=== PATIENT | female | born 1955 | race Caucasian/White ===

== ENCOUNTER 2024-03-02 22:09 | Inpatient (IN) | payer MEDICARE, SELFPAY ==
[2024-03-02 16:24] VITALS: BP 145/62
[2024-03-02 16:44] LABS: % Basophils 0.3 % (0-2); % Eosinophils 0.5 % (0-6); % Immature Granulocytes 0.4 % (0-0.5); % Lymphocytes 13.6 % (20.5-51.1); % Monocytes 5.5 % (1.7-9.3); % Neutrophils 79.7 % (42.2-75.2); Absolute Eosinophils 0.1 10^3/uL (0-0.7); Absolute Immature Granulocytes 0.1 10^3/uL (0-0.05); Absolute Monocytes 0.8 10^3/uL (0.1-0.6); Absolute Neutrophils 11.6 10^3/uL (1.4-6.5); Hematocrit 38.4 % (37.0-47.0); Hemoglobin 13.2 g/dL (12.0-16.0); Mean Corp Hgb Conc. 34.4 g/dL (33.0-37.0); Mean Corpuscular Hgb 29.3 pg (27.0-31.0); Mean Corpuscular Volume 85.1 fL (81.0-99.0); Mean Platelet Volume 9.6 fL (7.4-10.4); Nucleated Red Blood Cells % 0 %; Platelet Count 266 10^3/uL (130-400); Red Blood Cell Count 4.51 10^6/uL (4.20-5.40); White Blood Cell Count 14.5 10^3/uL (4.8-10.8)
[2024-03-02 16:59] LABS: ALT (SGPT) 17 U/L (0-35); AST (SGOT) 24 U/L (14-36); Alkaline Phosphatase 86 U/L (38-126); Blood Urea Nitrogen 20 mg/dl (7-17); Calcium 9.5 mg/dl (8.4-10.2); Carbon Dioxide 24 mmol/L (22-30); Chloride 106 mmol/L (98-107); Glucose 150 mg/dl (70-99); Potassium 3.5 mmol/L (3.5-5.1); Sodium 139 mmol/L (135-145); Total Bilirubin 1.1 mg/dl (0.2-1.3); Total Protein 6.4 g/dl (6.3-8.2); eGFR 54.39
[2024-03-02 17:00] VITALS: BP 123/50
--- NOTE | 2024-03-02 17:13 | ED.GENMED ---
History of Present Illness
General
Chief Complaint: Fainting/Passed Out
Source: patient and family
Exam Limitations: none
Time Seen by Provider: 03/02/24 17:11
Nursing documentation reviewed up to this point in time: agreed with
History of Present Illness
History of Present Illness:
68-year-old female presents emergency department complaining of syncope episode when she went to use the hieu potty at [facility]. She was outside watching a polo match, went to use the bathroom and felt hot. She then open the door and
her son walked her to the bathroom upon which she had a syncope episode in his arms. She feels a little bit better now but is thirsty.
Past History
Past History
ED Past Medical History: HTN and Other (Colitis)
ED Past Surgical History: Cholecystectomy and Orthopedic (Bilateral knee replacement)
Social History
Tobacco: Non-smoker
Alcohol: Occasional
Drug: None
Living: with family
Review of Systems
Review of Systems
Allergies reviewed?: Yes
All Other Systems: Not applicable
Constitutional: Reports no symptoms
EENT: Reports no symptoms
Respiratory: Reports no symptoms
Cardiac: Reports syncope; Denies chest pain
ABD/GI: Reports abdominal pain, diarrhea and bloody stools
: Reports no symptoms
Musculoskeletal: Reports no symptoms
Skin: Reports no symptoms
Neurological: Reports no symptoms
Endocrine: Reports no symptoms
Hematologic/Lymphatic: Reports no symptoms
Psychiatric: Reports no symptoms
Phy Exam
Physical Exam
Physical Exam:
Physical Exam
General: no apparent distress, not acutely ill, bloody stool seen in toilet
Neck: supple. no meningeal signs. normal posterior pharynx
Heart: s1/s2 regular rate and rhythm, no murmur. equal radial
pulses.
HEENT: Pupils equal round reactive to light, EOMI
Lungs: no acute respiratory distress. clear bilaterally
Abdomen: normal bowel sounds. Mild lower abdominal tenderness, no rebound or guarding. no CVAT
Neuro: alert and oriented. no focal neurological deficits cranial nerves II through XII intact
Skin: no rash
Psychiatric: well kept. interactive and cooperative
Extremities: no edema. no calf tenderness. negative homans. good distal pulses
Course
Orders/Labs/Results
Orders:
Orders
03/02/24 16:09
Electrocardiogram (*1) Urgent
Reason for Study: Syncope
EKG- Treatment ONCE
03/02/24 16:33
CMP [Comprehensive Metabolic Panel] Urgent
Complete Blood Count/With Diff Urgent
03/02/24 17:27
CT Abd/pel W Iv And Oral Contr Urgent
Comment:
Reason For Exam: lower abd pain, bloody diarrhea
Iohexol [Omnipaque] See Protocol PO NOW STA
03/02/24 17:28
Iohexol [Omnipaque] 50 ml .ROUTE .STK-MED ONE
03/02/24 17:29
0.9% Sodium Chloride 1000 ml [Nss] 1,000 ml IV BOLUS
03/02/24 20:32
Piperacillin/Tazo 3.375 Gram [Zosyn] 3.375 gram in 50 ml IV NOW
Abnormal Lab Results
03/02/24
16:33
WBC 14.5 H 10^3/uL
(4.8-10.8)
Abs Immat Gran (auto) 0.1 H 10^3/uL
(0-0.05)
Absolute Neuts (auto) 11.6 H 10^3/uL
(1.4-6.5)
Absolute Monos (auto) 0.8 H 10^3/uL
(0.1-0.6)
Neutrophils % 79.7 H %
(42.2-75.2)
Lymphocytes % 13.6 L %
(20.5-51.1)
BUN 20 H mg/dl
(7-17)
Creatinine 1.1 H mg/dL
(0.6-1.0)
Glucose 150 H mg/dl
(70-99)
03/02/24 16:33
03/02/24 16:33
Vital Signs
Initial and Last Documented VS:
Initial Vital Signs
BP
145/62
03/02/24 16:24
Last Documented Vital Signs
Temp Pulse Resp BP Pulse Ox
97.8 F 83 18 135/62 95
03/02/24 20:16 03/02/24 20:16 03/02/24 20:16 03/02/24 20:16 03/02/24 20:16
MDM/Problems Addressed
Differential Diagnosis Includes:
dysrhtyhmia, ischemic colitis, infectious colitis, inflammatory colitis
MDM/Problems Addressed:
68-year-old female with bloody diarrhea, syncope episode, colitis. Admit to hospitalist. IV Zosyn and IV fluids given.
Chronic conditions affecting care: HTN and Other (Colitis)
*Radiology
Radiology exam reviewed: radiology read reviewed (CT abdomen pelvis shows colitis, no pneumatosis)
*Pulse Oximetry
Patient hypoxic: no
*EKG
Interpreted by ED Provider?: Yes
EKG Intrepretation Date: 03/02/24
EKG Intrepretation Time: 16:19
Interpretation: abnormal
Comparison EKG: no comparison EKG present
Heart Rate: 88
Rate: normal
Rhythm: sinus
[place]: normal axis
Interval: normal interval
QRS Pattern: normal QRS
Ischemia: non-specific ST changes
*Embalmer Assistant Interpretation
Rate: normal
Interpretation: normal
Heart Rate: 82
Rhythm: sinus
*Critical Care Note
Total Time (30-74mins, 75-104mins- exclusive of procedures): Not Applicable
Patient Management
Social determinants of health affecting care: Living situation
Discussion with other providers: Hospitalist
Escalation/DeEscalation of care consider admission/obs:
Admit indicated
ED Attending Note
-
Portions of this chart may have been created with voice recognition software.� Occasional wrong word or��sound alike� substitutions may have occurred due to the inherent limitations of voice recognition software.
Discharge Plan
Departure
Patient Disposition: Admit
Date of Disposition: 03/02/24
Time of Disposition: 20:33
Admit to: Telemetry
Presentation/result/management discussed w/ accepting MD/DO: Hospitalist
Patient with high blood pressure during this ER visit?: Yes
Condition: Good
Discharge Problem:
Colitis, Bloody diarrhea, Syncope
Referrals:
NONE,* [Family Provider] -
Interventions
Interventions:
*Risk Screen - Suicide Last Done: 03/02/24 16:03
*General Assessment Last Done: 03/02/24 16:03
*Neglect/Abuse Screening Last Done: 03/02/24 16:03
ED- Fall Risk Assessment Last Done: 03/02/24 17:05
ED- Cardiac Assessment Last Done: 03/02/24 16:03
ED- Neurological Assessment Last Done: 03/02/24 16:03
Discharge Date and Time
Print Language: THAI
[2024-03-02] MEDS: OMNIPAQUE 50 ML PO (17:31)
[2024-03-02] MEDS: NSS 1000 IV ×2 (17:32→23:15)
[2024-03-02 20:16] VITALS: BP 135/62
[2024-03-02] MEDS: ZOSYN 50 IV (20:53)
--- NOTE | 2024-03-02 21:27 | HPS.HSE ---
Family Physician
-
Family Physician: * NONE
Chief Complaint
-
Bloody diarrhea
History of Present Illness
68-year-old woman with an episode of syncope when she went to use the toilet. She was outside watching a polo match, went to use the bathroom and felt hot. She then opened the door and her son walked her out of the bathroom upon which she had a
syncope episode in his arms. She feels a little bit better now but is thirsty. She stated she had a bloody BM, similar to when she had diverticulitis in the past. At the time of my interview she said she felt better after having had fluids.
Medical History
Past Medical History
Past Medical History: Reports Other
Additional Past Medical History:
essential HTN
Colitis
Cholecystectomy
Bilateral knee replacement
Past Surgical History: Reports Other
Additional Past Surgical History:
see above
Social History
Tobacco: Non-smoker
Alcohol: None
Drug: None
Family History
Family History: Not pertinent
Allergies / Home Medications
Allergies reflects when Allergies were last updated in [facility].
Home Medications with original date entered in [facility]
Allergy/Medication List:
Allergies
Allergy/AdvReac Type Severity Reaction Status Date / Time
prochlorperazine Allergy Severe Anaphylaxis Verified 03/02/24 16:19
[From Compazine]
If medication reconciliation has not been performed, why?: Medication List N/A
Review of Systems
-
History Source: Patient
A 12 point ROS was completed and negative except as noted: Yes
Physical Exam
Vital Signs
Vital Signs
Temp Pulse Resp BP Pulse Ox
97.8 F 83 18 135/62 95
03/02/24 20:16 03/02/24 20:16 03/02/24 20:16 03/02/24 20:16 03/02/24 20:16
Physical Exam
General: Well Developed, Well Nourished, No Apparent Distress, Comfortable and Conversant
HEENT: NormoCephalic, Anicteric, Moist mucous membranes, Atraumatic, No Ptosis, Nose Appears Normal and Ears Appear Normal
Respiratory: Clear
Cardiac: S1/S2 and Regular Rhythm
GI: Soft, Non Tender and Non Distended
Musculoskeletal: No Clubbing, No Cyanosis and No Edema
Skin: Warm and Dry; No Rash or Jaundice
Neuro: Awake, Alert, Oriented and AO x 3
Psych: Calm
Laboratory Results
-
03/02/24 16:33
03/02/24 16:33
Laboratory Results
Total Bilirubin 1.1 mg/dl (0.2-1.3) 03/02/24 16:33
AST 24 U/L (14-36) 03/02/24 16:33
ALT 17 U/L (0-35) 03/02/24 16:33
Alkaline Phosphatase 86 U/L (38-126) 03/02/24 16:33
Data Reviewed
-
Lab Data: Labs Reviewed by me
Impression/Plan
-
IMPRESSION:
68 woman with syncopal episode and non-specific colitis on CT. Significant findings:
Nonspecific colitis. No evidence of pneumatosis. No perforation or abscess.
WBC 14.5
BUN/Creat 20/1.1
H/H 13.2/38.4
ECG with non-specific abnormalities, no chest pain
PLAN:
1. Non-specific colitis, preserved H/H.
IV abx
Normal saline
Check H/H in am
2. BUN/Creat >20
IV saline
3. Abnormal ECG - place on tele overnight
Check troponin once tonight
4. Med list not available
Try to obtain list in the AM.
Full code
VCD for DVTp
[2024-03-02 21:40] VITALS: BP 133/60
[2024-03-02 22:33] VITALS: BMI 29.6
[2024-03-02 23:04] VITALS: BP 146/70
[2024-03-02] MEDS: EFFEXOR XR 150 MG PO (23:14)
--- NOTE | 2024-03-02 23:32 | PTCARENOTE ---
PT IS AAOX3, no c/o lightheadedness or dizziness, no chest pain or SOB. pt reports abd tender, cramping pain 2-3/10. pt declined any meds. pt instructed to call RN/PCT when she has to use bathroom. pt oriented to room w/ call alvarenga in reach.
[2024-03-02 23:33] LABS: Troponin I 0.018 ng/ml
[2024-03-03 03:02] VITALS: BP 133/66
[2024-03-03] MEDS: NSS 1000 IV ×2 (05:17→11:57)
[2024-03-03] MEDS: ZOSYN 50 IV ×2 (05:17→11:59)
[2024-03-03 06:35] LABS: Hematocrit 36.3 % (37.0-47.0); Hemoglobin 12.6 g/dL (12.0-16.0); Mean Corp Hgb Conc. 34.7 g/dL (33.0-37.0); Mean Corpuscular Hgb 29.6 pg (27.0-31.0); Mean Corpuscular Volume 85.2 fL (81.0-99.0); Mean Platelet Volume 10.1 fL (7.4-10.4); Platelet Count 250 10^3/uL (130-400); Red Blood Cell Count 4.26 10^6/uL (4.20-5.40); Red Cell Dist. Width 13.2 % (11.5-14.5); White Blood Cell Count 11.5 10^3/uL (4.8-10.8)
[2024-03-03 07:03] LABS: Troponin I 0.019 ng/ml
[2024-03-03 07:11] LABS: Blood Urea Nitrogen 16 mg/dl (7-17); Calcium 8.8 mg/dl (8.4-10.2); Carbon Dioxide 23 mmol/L (22-30); Chloride 108 mmol/L (98-107); Estimated Creatinine Clearance 65 ml/min; Glucose 104 mg/dl (70-99); Potassium 3.9 mmol/L (3.5-5.1); Sodium 137 mmol/L (135-145); eGFR > 60.00
[2024-03-03 07:30] VITALS: BP 123/57
[2024-03-03 11:17] VITALS: BP 151/65
--- NOTE | 2024-03-03 11:52 | W.PN.HOSP.TC ---
Today's Communication/Plan
-
Continue IV antibiotics and send stool cultures
Repeat CBC in afternoon to assess stability
Perform orthostatic vital signs
Consider DC if all workup negative
Assessment / Plan
Assessment / Plan
#Nonspecific colitis -- acute on chronic, follows with GI
#Hematochezia
-Follows with gastroenterology near [facility]
-Has not unspecified colitis, normal chronic medications
-Had colonoscopy 2 years ago which she states was normal
-Hemoglobin has been stable, did have leukocytosis initially
-Currently on IV antibiotics, send stool cultures this morning
-Repeat CBC in afternoon to assess stability
Plan
-Repeat CBC at 1 pm to assess stability of hemoglobin
-Continue with IV antibiotics, follow-up stool culture
-Continue to follow on telemetry
-If all workup negative, patient can be DC'd home with follow-up with her GI doctor
#Abnormal ECG -- nonspecific T wave abnormality, flattening
-Troponin negative x2, no chest pain
-Should follow-up with PCP
#Syncopal episode
-Suspect this is related to hematochezia and vasovagal symptoms
-Symptoms occurred when she was using a hieu potty
-No abnormal events on telemetry overnight
-Order orthostats now for completeness
#Hypertension
-Continued on lisinopril and hydrochlorothiazide
#Anxiety
-Continued on venlafaxine
DVT prophylaxis: SCDs
Diet: Regular
CODE STATUS: Full code
Anticipated Discharge: Within 24 hours
Subjective/Interval History
-
Date of Service: March 03, 2024
Seen and examined at bedside. No acute events. She states that she has not had a bowel movement since yesterday when she came in. Denies any acute complaints this morning states she feels well.
She states that she does not know the cause of her colitis. It is chronic and she does have flares on occasion which can cause diarrhea though has not had this much bleeding before. 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
[place]. Her goal was to be discharged from the hospital today so that she can follow-up in [place].
She was at a polo match yesterday when her symptoms occurred, he after using hieu potty. She denies any abnormal food, no recent cookouts or new restaurants. States that nobody else in her family has had recent gastrointestinal illnesses.
Denies chest pain, shortness of breath, fevers or chills, nausea, vomiting, urinary symptoms, weakness or paresthesia, other sources of abnormal bleeding
Objective Data
-
Labs:
Laboratory Results
03/03/24 03/03/24
06:27 13:00
WBC 11.5 H Pending
Hgb 12.6 Pending
Hct 36.3 L Pending
Plt Count 250 Pending
Sodium 137
Potassium 3.9
Chloride 108 H
Carbon Dioxide 23
BUN 16
Creatinine 0.8
Glucose 104 H
Calcium 8.8
Vital Signs:
Vital Signs
Temp Pulse Resp BP Pulse Ox
98.1 F 75 16 151/65 98
03/03/24 11:17 03/03/24 11:17 03/03/24 11:17 03/03/24 11:17 03/03/24 11:17
Review of Systems
-
History Source: Patient
All other systems: Reviewed and negative
Physical Exam
-
General: Well Nourished, No Apparent Distress and Comfortable
HEENT: Normocephalic, Atraumatic, Moist Mucous Membranes and Anicteric
Respiratory: Clear to Auscultation and Non Labored Respirations; Negative Wheezes, Rales or Rhonchi
Cardiac: Regular Rhythm and S1/S2; Negative Murmur, Rub or Gallop
GI: Soft, Nontender, Nondistended and Normal Bowel Sounds
Musculoskeletal: No Clubbing, No Cyanosis and No Edema
Skin: Warm and Dry; Negative Rash
Neuro: AO x 3, Nonfocal/Grossly Intact and Central Nerve's Intact
Data Reviewed
-
CT Scan: Report Reviewed by me
Labs: Labs Reviewed by me and Discussed with Patient
[2024-03-03 12:14] VITALS: BP 125/60; BP 127/68; BP 146/70; PULSE 70; PULSE 74; PULSE 76
[2024-03-03 13:02] LABS: Hematocrit 36.9 % (37.0-47.0); Hemoglobin 12.8 g/dL (12.0-16.0); Mean Corp Hgb Conc. 34.7 g/dL (33.0-37.0); Mean Corpuscular Hgb 29.8 pg (27.0-31.0); Mean Corpuscular Volume 85.8 fL (81.0-99.0); Platelet Count 240 10^3/uL (130-400); Red Cell Dist. Width 13.3 % (11.5-14.5); White Blood Cell Count 11.4 10^3/uL (4.8-10.8)
[2024-03-03 13:28] LABS: Troponin I < 0.012 ng/ml
--- NOTE | 2024-03-03 14:39 | W.DCSUMMARY ---
Discharge Summary
Discharge Data
Date of Admission: 03/02/24
Date of Discharge: 03/03/24
-
Pending Results: Yes
Additional Pending Results:
Stool cultures
Hospital Course
Presented with a syncopal episode after using [place] on at a sporting event. Also complained of hematochezia. On arrival to the ED was started on IV antibiotics. Stool cultures taken on day 2 of hospital stay. Monitored her blood counts over
time which remained stable, no signs of active bleeding and she had no further bloody bowel movements inside of the hospital. She stated that she wanted to be discharged so that she could follow-up with her primary care doctor and
formal waiter/waitress in [facility]. No fevers or chills, infectious symptoms were otherwise minimal.
Orthostatic vital signs were positive though patient did not have symptoms. She did receive IV fluids prior to this testing. Suspicion for her initial syncopal episode is orthostasis versus vasovagal. Telemetry did not show any abnormal findings
of her time in the hospital. Troponin and initial ECGs were unremarkable for any acute ST changes or STEMI equivalents, did show nonspecific T wave flattening the troponin levels were negative and patient never had chest pain.
Discharged with a course of Augmentin, advised to follow-up with primary care doctor and gastroenterology within 2 to 3 days of discharge. Advised her to return to the emergency department if she noticed any blood in her stool or had recurrence of
her lightheadedness/syncopal episode.
Discharge Plan
-
Patient Disposition: Home (Routine Discharge)
Discharge Diagnosis/Procedures: Hematochezia
Colitis flare
Syncopal episode�vasovagal versus orthostatic
Condition: Good
Diet: No restrictions
Activity: No restrictions
Driving Restrictions: As prior to admission
Bathing Restrictions: None
Blood Work: Pending lab work: Stool cultures, records to be sent to primary care/GI office
Others Tests: N/A
Specialty Instructions: Weigh Daily- Call MD for wt gain/loss 3 lbs overnight/5 lbs in 1 week
Activity Restrictions/Additional Instructions:
If you develop recurrence of blood in your stool, or have episodes of lightheadedness/feeling like you are going to pass out then call your primary care doctor or go to the closest emergency department for evaluation.
Schedule follow-up appointment with your primary care doctor and formal waiter/waitress within 1 week of discharge
Instructions: Syncope (fainting), Vasovagal Response, Bloody stools in adults
Referrals:
NONE,* [Family Provider] -
Additional Discharge Medication Instructions: Stop taking hydrochlorothiazide and lisinopril and to to see your primary care doctor. Blood pressure was volatile with positional changes (orthostasis), these meds may have been contributing, and this
is why you may have passed out.
Monitor your home blood pressure, if systolic blood pressure (top number) goes >170 mmHg then call your primary care doctor
Take amoxicillin/clavulanate (Augmentin) 875-125 mg twice daily for 6 days after being discharged from the hospital.
Prescriptions:
New
amoxicillin-pot clavulanate 875-125 mg tablet
1 tab PO Q12H 6 Days Qty: 12 0RF
Continued
venlafaxine 150 mg capsule,extended release 24hr
150 mg PO DAILY
rosuvastatin 5 mg tablet
5 mg PO DAILY
Discontinued
lisinopril 40 mg tablet
40 mg PO DAILY
hydrochlorothiazide 12.5 mg tablet
12.5 mg PO DAILY
Discharge Orders:
Discharge Patient (As Directed); Ordered 03/03/24
Ordered By: Caio Aldana
Discharge Date and Time
Print Language: POLISH
[2024-03-03 14:50] VITALS: BP 137/66; BP 155/85
--- NOTE | 2024-03-03 16:25 | CM ---
Addendum entered by Stefanie Koenig 03/03/24 16:29:
No Family Physician; offer to provide PCP resource declined
Original Note:
Intial Asessment completed
Pharmacy verified: [facility] [address], [place], [place]
Patient reported she lives alone in a townhouse; powder room first floor; 1 step to enter; 12 steps between floors; 2nd floor bath has tub w/shower
PLOF: independent with ambulation, stairs, and ADLs; drives; retired
No recent SNF or Home Health utilization history
Son provide transport home
Plan: discharge to home, no needs
== END 2024-03-03 16:25 | disposition home or self-care (01) | DRG 392 ==
LOC: 4 WEST ACU 22:09
PROVIDERS: Physician Assistant Medical; ADMITTING PHYSICIAN Internal Medicine; ATTENDING PHYSICIAN Internal Medicine; EMERGENCY PHYSICIAN Emergency Medicine
DX: K52.9 Noninfective gastroenteritis and colitis, unspecified (principal); R55 Syncope and collapse; I10 Essential (primary) hypertension; R94.31 Abnormal electrocardiogram [ECG] [EKG]; Z96.653 Presence of artificial knee joint, bilateral; Z90.49 Acquired absence of other specified parts of digestive tract
CPT/HCPCS: 74177; 80048; 80053; 84484; 85025; 85027; 87045; 87046; 87427; 93005; 96361; 96365; 99285; Q9967